=== PATIENT | female | born 1980 | race Caucasian/White ===

== ENCOUNTER 2018-07-10 16:55 | Emergency (ER) | payer OTHER ==
[~2018-07-10] VITALS: Ht 160 cm; Wt 84.8 kg
[2018-07-10 17:16] VITALS: BP 120/86; Ht 160 cm; Wt 84.8 kg
[2018-07-10 19:18] LABS: BASOPHIL % 0.5 % (0-2); PLATELET COUNT 299 x10^3mcL (130-400)
[2018-07-10 19:28] LABS: CALCIUM 8.4 mg/dL (8.5-10.1); CARBON DIOXIDE 27.1 mmol/L (21-32); CHLORIDE SERUM 105 mmol/L (98-107); CREATININE SERUM 0.6 mg/dL (0.6-1.0); GFR1 > 60 mL/min; GLUCOSE SERUM 77 mg/dL (74-106); POTASSIUM SERUM 3.7 mmol/L (3.5-5.1); SODIUM SERUM 141 mmol/L (136-145)
[2018-07-10 19:32] LABS: ALBUMIN 3.4 g/dL (3.4-5.0); ALKALINE PHOSPHATASE 44 U/L (46-116); ALT/SGPT 14 U/L (14-59); AMYLASE 90 U/L (25-115); AST/SGOT 3 U/L (15-37); BILIRUBIN TOTAL 0.4 mg/dL (0.20-1.00); LIPASE 286 IU/L (73-393); TOTAL PROTEIN, SERUM 6.7 g/dL (6.4-8.2)
== END 2018-07-10 19:53 | disposition home or self-care (01) ==
LOC: ED 16:55
PROVIDERS: Emergency Medicine
DX: R10.13 Epigastric pain (principal); R11.0 Nausea; Z88.5 Allergy status to narcotic agent
CPT/HCPCS: 36415; J1885; Q0092